=== PATIENT | male | born 1950 | race Caucasian/White ===

== ENCOUNTER 2020-06-06 15:15 | Inpatient (IN) | payer MEDICARE, BC ==
[~2020-06-06] VITALS: Ht 182.9 cm; Wt 100.8 kg
[~2020-06-06 15:15] MED LIST: DEXL60CA3 PO; PRED1TAB PO
--- NOTE | 2020-06-06 15:35 | NUR ---
Patient came in to the er c/o dizziness x 4 days, "feels like the room is spinning". On room air, breathing evenly and unlabored. Connected to the monitor and pulse ox. kept comfortable, will continue to monitor accordingly.
[2020-06-06 16:02] LABS: BASOPHILS # (AUTO) 0.1 /CMM (0.0-0.2); BASOPHILS % (AUTO) 1.1 % (0.0-2.0); EOSINOPHILS % (AUTO) 3.9 % (0.0-6.0); HEMATOCRIT 41 % (39-51); HEMOGLOBIN 13.9 g/dL (13.5-17.5); LYMPHOCYTES # (AUTO) 1.6 /CMM (0.8-4.8); LYMPHOCYTES % (AUTO) 27.9 % (20.0-44.0); MEAN CORPUSCULAR HGB CONC 34 g/dl (31.0-36.0); MEAN CORPUSCULAR VOLUME 93 fL (80-96); MONOCYTES # (AUTO) 0.6 /CMM (0.1-1.30); MONOCYTES % (AUTO) 9.9 % (2.0-12.0); NEUTROPHILS # (AUTO) 3.2 /CMM (1.8-8.9); NEUTROPHILS % (AUTO) 57.2 % (43.0-81.0); PLATELET COUNT (AUTO) 273 /CMM (150-450); RED BLOOD CELL COUNT(AUTO) 4.44 MIL/uL (4.5-6.0); WHITE BLOOD COUNT (AUTO) 5.6 K/uL (4.3-11.0)
[2020-06-06 16:12] LABS: CALCIUM, SERUM 9.3 mg/dL (8.5-10.1); CARBON DIOXIDE 30 mmol/L (21-32); CHLORIDE 103 mmol/L (98-107); CREATININE 0.8 mg/dL (0.6-1.3); GLUCOSE 99 mg/dL (74-106); POTASSIUM 4.2 mmol/L (3.5-5.1); SODIUM SERUM 140 mmol/L (136-145); UREA NITROGEN, BLOOD 14 mg/dL (7-18)
[2020-06-06] MEDS ORDERED: TRAM50TA2 PO (16:31)
[2020-06-06] MEDS ORDERED: ASPIRIN 81 MG TAB.CHEW ONE (17:28)
[2020-06-06] MEDS ORDERED: MECLIZINE HCL 25 MG TABLET ONE (17:28)
[2020-06-06] MEDS ORDERED: ASPIRIN 81 MG TAB.CHEW PO ONE (17:30)
[2020-06-06] MEDS ORDERED: MECLIZINE HCL 12.5 MG TABLET PO ONE (17:30)
[2020-06-06] MEDS ORDERED: CHOL100040 PO (17:35)
[2020-06-06] MEDS ORDERED: PANT40TA49 PO (17:35)
[2020-06-06] MEDS ORDERED: ASCO-352 PO (17:35)
[2020-06-06] MEDS ORDERED: ASPI-1420 PO (17:35)
[2020-06-06] MEDS ORDERED: HYDR200T4 PO (17:35)
[2020-06-06] MEDS ORDERED: IOHEXOL-350 100 ML VIAL IV ONE (18:28)
[2020-06-06] MEDS ORDERED: IV NS 0.9% 250 ML IV ONE (18:28)
[2020-06-06] MEDS ORDERED: MECLIZINE HCL 12.5 MG TABLET PO PRN (18:30)
--- NOTE | 2020-06-06 18:40 | NUR ---
LAB CALLED PT COVID NEGATIVE (-)
--- NOTE | 2020-06-06 18:49 | NUR ---
Wheeled patient via gurney accompanied by Barnacle for CTA
--- NOTE | 2020-06-06 18:53 | NUR ---
patient came back from CTA
--- NOTE | 2020-06-06 19:20 | NUR ---
REC'D REPORT FROM IRENE WEINER. PT RESTING COMFORTABLY IN BED. NO ACUTE DISTRESS NOTED AT THIS TIME. STILL ON MONITOR, WILL CONTINUE TO MONITOR
--- NOTE | 2020-06-06 20:27 | NUR ---
REPORT GIVEN TO IRENE REGALADO FOR HARRISON
[2020-06-06] MEDS ORDERED: ASPIRIN EC 81 MG TABLET.DR PO ONE (20:30)
--- NOTE | 2020-06-06 20:41 | NUR ---
PT TRANSFERRED PER ACLS PROTOCOL
[2020-06-06 21:00] VITALS: BP_SYST 118; BP_SYST 140; BP_SYST 145; BP_DIAS 83; BP_DIAS 88
[2020-06-06] MEDS ORDERED: ENOXAPARIN SODIUM 40 MG/0.4 ML DISP.SYRIN SQ SCH (21:00)
--- NOTE | 2020-06-06 21:00 | NUR ---
ADMISSION NOTE PT ADMITTED TO [address] BUNDY, NEW ORDERS RECIEVED WITH DX R/O STROKE. PT A/OX4 AMBULATORY WITH STEADY GAIT SWALLOW EVAL PERFORMED PT HAS NO ISSUES SWALLOWING AND ALLOWED TO EAT AND DRINK. PT CC WAS DIZZINESS FOR 4 DAYS DENIES FEELING DIZZY AT THIS TIME. GAIT IS STEADY. STROKE PROTOCOL INITIATED. PT HAS MILD RIGHT ARM WEAKNESS. AND REPORTS HE HAS SOME NUMBNESS AND TINGLING TO LEFT ARM AND HAS SOME NUMBNESS TO LEFT FOOT AND LEG. PT REPORTS THE LEFT FOOT NUMBNESS AND TINGLING HAS BEEN ONGOING SINCE HIS BACK INJUR SOME YEARS AGO. PT ORIENTED TO ROOM. CALL LIGHT PLACED IN REACH VERBALIZED /DEMONSTRATED USE OF CALL LIGHT. BED DOWN LOCKED SRX2 VERBALIZED UNDERSTANDING TO CALL FOR ASSISTANCE IF NEEDED. MRI QUESTIONAIRE COMPLETED, ADMISSION ASSESSMENT COMPLETED WILL CONT TO MONITOR.
--- NOTE | 2020-06-06 21:01 | NUR ---
ORTHOSTATIC VITALS STANDIN/83, HR 65 SITTIN/88, HR 58 LYIN/88 HR 60
[2020-06-07] VITALS: BP 104/62
[2020-06-07 04:00] VITALS: BP 104/62
[2020-06-07 07:09] LABS: BASOPHILS # (AUTO) 0.1 /CMM (0.0-0.2); BASOPHILS % (AUTO) 1.3 % (0.0-2.0); EOSINOPHILS % (AUTO) 4.7 % (0.0-6.0); HEMATOCRIT 40 % (39-51); HEMOGLOBIN 13.5 g/dL (13.5-17.5); LYMPHOCYTES # (AUTO) 1.9 /CMM (0.8-4.8); LYMPHOCYTES % (AUTO) 33.4 % (20.0-44.0); MEAN CORPUSCULAR HGB CONC 34 g/dl (31.0-36.0); MEAN CORPUSCULAR VOLUME 93 fL (80-96); MONOCYTES # (AUTO) 0.7 /CMM (0.1-1.30); MONOCYTES % (AUTO) 11.5 % (2.0-12.0); NEUTROPHILS # (AUTO) 2.9 /CMM (1.8-8.9); NEUTROPHILS % (AUTO) 49.1 % (43.0-81.0); PLATELET COUNT (AUTO) 266 /CMM (150-450); RED BLOOD CELL COUNT(AUTO) 4.26 MIL/uL (4.5-6.0); WHITE BLOOD COUNT (AUTO) 5.8 K/uL (4.3-11.0)
--- NOTE | 2020-06-07 07:20 | NUR ---
RN OPENING NOTE PATIENT RECEIVED RESTING COMFORTABLY IN BED. PATIENT IS ON ROOM AIR WITH NO COMPLAINTS OF SOB OR RESPIRATORY DISTRESS NOTED. NO COMPLAINTS OF PAIN. PATIENT SAFETY PRECAUTIONS IMPLEMENTED, BED LOCKED IN LOWEST POSITION, SIDE RAILS UP X2, CALL LIGHT WITHIN REACH. WILL CONTINUE TO MONITOR AND PROVIDE CARE THROUGHOUT SHIFT.
[2020-06-07 07:31] LABS: CALCIUM, SERUM 8.5 mg/dL (8.5-10.1); CREATININE 0.8 mg/dL (0.6-1.3); POTASSIUM 4.3 mmol/L (3.5-5.1)
[2020-06-07 07:59] LABS: THYROID STIMULATING HORMONE 2.617 uIU/mL (0.358-3.74)
[2020-06-07 08:00] VITALS: BP_SYST 113; BP_SYST 118; BP_SYST 126; BP_DIAS 76; BP_DIAS 77; BP_DIAS 82
[2020-06-07] MEDS ORDERED: ASPIRIN 81 MG TAB.CHEW PO SCH (09:00)
[2020-06-07] MEDS ORDERED: CHOLECALCIFEROL 1,000 UNIT TABLET (VIT D3) PO SCH (10:00)
[2020-06-07 12:00] VITALS: BP_SYST 114; BP_SYST 116; BP_SYST 124; BP_DIAS 72; BP_DIAS 84
--- NOTE | 2020-06-07 16:08 | NUR ---
SS Consult: SS consult requested for code stroke. The pt. is a 69-year old male seeking medical treatment for symptoms of dizziness and numbing in left hand, per pt. SW met with pt. at bedside and completed stroke depression assessment. Pt. appears well-groomed and is A&OX4. Pt.'s thought process is WNL. The pt. stated he lives alone at [[id number] [facility] [address]; [phone]]. The pt. stated he often stays with his girlfriend, Stephanie Valenzuela (did not provide number). Per patient his support system consists of his daughter, Marla Larose [phone] and son who reside sin [place]. Per pt. he is independent with all of his ADLs and is ambulating with no assist. Patient denies any drug & ETOH use. Pt. denies SI/HI and denies hallucinations. SW provided pt. with senior resources and patient accepted them. SW provided pt. with stroke empowerment education & resources and patient was agreeable. ABUSE PREVENTION: ELDER ABUSE HOTLINE (15/10) ADULT PROTECTIVE SERVICES HOTLINE [facility] Region AREA ON AGING (HOTLINE) ADULT DAY HEALTH CARE CARE CENTERS: Private pay or [facility] funded adult day care [place] Adult Day Health Care [facility] Center , [facility] , [facility] Adult Care Center , [facility] Adult [facility] Health Care , [facility] Adult [facility] Health Care , [facility] Adult [facility] Center , [place] [facility] , [facility] Adult Center , [place] ALZHEIMERS DISEASE/DEMENTIA: Alzheimers Association Helpline [facility] Chapter www.alz.org/[facility] Department of Aging www.lacity.org Family Caregiver [place] www.caregiver.org [place] Caregiver Resources Center/Family Support www.losangelesscrc.org CANCER RESOURCES: [place] Cancer Society www.cancer.org Cancer Support Community www.CancerSupportVvsb.org: CancerCare www.cancercare.org [facility] Cancer Support [place] www.[facility].org [facility] HEALTH ASSOCIATIONS: AARP www.aarp.org ALS Association (ask for Paige) www.als.org Vincentian Diabetes Association www.diabetes.org Vincentian Heart Association www.heart.org Vincentian Lung Association www.lungusa.org Vincentian Parkinson Disease Association www.apdaparkinson.org Vincentian [place] , www.redcross.org Arthritis Foundation www.arthritis.org Crohns & Colitis Foundation of Vincentian www.ccfa.org/chapters/carmen National Multiple Sclerosis Society www.nationalmssociety.org Myasthenia Gravis Foundation www.myasthenia-ca.org National Stroke Association www.stroke.org CONSERVATORSHIP & GUARDIANSHIP: AARP Steff Sykes Legal Services Center for Health Care Rights Eldercare Information and Referral Shotweld Operator [facility]: [facility] Referral Service [facility] Legal Services Office of the Public Guardian [place] GRIEF AND BEREAVEMENT RESOURCES: [facility] [place] , [facility] THE HOPE Connection , [facility] [employer] Bereavement Center , [place] HELP AT HOME CAREGIVER SUPPORT: In Home Support Services (Must have Medi-Yogi to be eligible) *Ask for a list of agencies that provide services to assist with care in the home. Local Senior Centers also have listings of care providers. HOME SAFETY MODIFICATIONS AND EQUIPMENT: Senior centers have additional referrals. [place] Medichanical Engineering and Community Investment Dept. Handyworker Program (low income) or Visit http://hcidla.st. francis hospitalUndesk.org/cxd-obafhj-es for more information National Seating and Mobility and/or ; Forever Active www.foreveractivemed.SyMynd Stay Home Safe www.Stayhomesafe.com LIFE ALERT RESPONSE SYSTEM: [place] Lifeline Services 968-327-1032 www. LifeFAMOCO.SyMynd Life Alert 801-674-3005 www.lifeNameMediart.SyMynd Life Station 881-699-0058 www.ReserveOutation.com Safe Return 937-416-0162 www.alz.or/safereturn Cell Phones for Seniors www.Gnzo MEALS AND FOOD PROGRAMS: [place] Meals on Wheels [phone] [place] Meals on Wheels [phone] [facility] [phone] [place] to the Homebound [phone] [place] to the Homebound [phone] [facility] to the Homebound [phone] [facility] to the Homebound [phone] Ji Suero [phone] [facility] [phone] [facility] [phone] [facility] [phone] [facility] [phone] Meals on Wheels [phone] For all ages: $6.85/ meal w side. Delivered M-F from 10 am-1pm. Application and payment is done over the phone. Frozen meals available for weekends. [facility] Food [facility] [phone] [facility] Content Director [phone] [facility] [phone] [facility] Outreach- Brown bag lunches [phone] [facility] [phone] MEAL/GROCERY DELIVERY PROGRAMS: [facility] Gourmet Meals [phone]- [facility] [phone]- [facility] Magic Kitchen [phone] Moms Meals [phone] (ask Graham for Discount Select grocery stores may provide delivery. MEDICAL INSURANCE SUPPORT SERVICES: Center for Health Care Rights [phone] Health Insurance Counseling/Advocacy Programs (HICAP)-Must have Medicare. Offers counseling for Medi-Yogi eligibility [phone] Department of Public Content Director [phone] www.[facility].ca.gov Medicare 539-302-8223 www.socialsecurity.org Social Security 118-660-5822 SENIOR ACTIVITY PROGRAMS: *Contact a local senior center, adult school, recreation facility or community college for education, fitness, recreation, and social programs. Aquatic Therapy and Adapted Exercise programs through [employer] [phone] [facility] at [facility] [phone] www.[facility]/encore U- Senior Friends [phone] [employer] Senior Programs [phone] www.oasisnet.org Suddenly 65 www.lnfpfykx07.com SENIOR CENTERS: [facility] [phone] [facility] [phone] [facility] [phone] [facility] [phone] [facility] [phone] [facility] [phone] [facility] [phone] [facility] [phone] Abby GenerationTone [facility] [phone] [facility] [phone] [facility] [phone] [facility] [phone] [facility] [phone] TRANSPORTATION: Local [facility] Centers may have applications for transportation programs and additional resources. ACCESS Services [phone] Transportation for seniors and disabled persons 7 days a week requiring 254 hr. advance reservation. Must apply and register for program anushka eligible. [employer] [phone] or [phone] Transportation for seniors and persons with ADA card/metro disabled card in the [facility]. M-F only. Must register for services. ONE GENERATION [phone] Serves 65 years + in conjunction with Mesh [place] program. Must be registered with both programs. A to B Transport [phone] Provides wheelchair/gurney van service. Adult Medical Transport [phone] Accepts Medi-yogi with prior authorization. Care Van [phone] Provides wheelchair Transport. [facility] Wide Transportation [phone] Provides gurney service [facility] [phone] Gurney Transport. [facility] Transportation [phone] wheelchair & gurney transport [facility] Transportation [phone] wheelchair & gurney transport [place] Non-Emergency Transport [phone] wheelchair & gurney transport [facility] Living [place] [phone] Short Term Transportation primarily for adults with disabilities on social security income. Nominal fee may apply and a reservation is required. [employer] [phone] or [phone] [place] [employer] [phone] [place] [address] Services [phone] For additional programs & services
[2020-06-07] MEDS ORDERED: PANTOPRAZOLE 40 MG TABLET.DR PO SCH (17:00)
[2020-06-07 18:00] VITALS: BP_SYST 130; BP_SYST 131; BP_SYST 132; BP_DIAS 68; BP_DIAS 72; BP_DIAS 80
--- NOTE | 2020-06-07 19:05 | NUR ---
RN CLOSING NOTE PATIENT RESTING COMFORTABLY IN BED. PATIENT IS ON ROOM AIR WITH NO COMPLAINTS OF SOB OR RESPIRATORY DISTRESS NOTED. NO COMPLAINTS OF PAIN. PATIENT SAFETY PRECAUTIONS IMPLEMENTED, BED LOCKED IN LOWEST POSITION, SIDE RAILS UP X2, CALL LIGHT WITHIN REACH. MRI COMPLETED. WILL ENDORSE CONTINUATION OF CARE THROUGHOUT SHIFT.
[2020-06-07 20:00] VITALS: BP 123/60
--- NOTE | 2020-06-07 21:10 | NUR ---
DISCHARGE NOTE IV REMOVED FROM RIGHT AC CATHETER INTACT NO S/S OF COMPLICATIONS. VS WNL. PATIENT HAS BEEN DISCHARGED HOME. REVIEWED DISCHARGE EDUCAITONS. PT HAS ALL BELONGINGS FROM ROOM. DISCHARGE DX OF VERTIGO. PT VERBALIZED UNDERSTANDING STATES HE IS GOING OT FOLLOW UP WITH DR. HORAN AND ENT DR. CANTU. PT TO BE PICKED UP BY PRIVATE VEHICLE. AND ESCORTED VIA EAMBULATION TO LOBBY TO WAIT FOR RIDE.
[2020-06-08] MEDS ORDERED: HYDROXYCHLOROQUINE 200 MG TABLET PO SCH (09:00)
[2020-06-08] MEDS ORDERED: ASPIRIN EC 81 MG TABLET.DR PO SCH (09:00)
[2020-06-08] MEDS ORDERED: ASCORBIC ACID 500 MG TABLET PO SCH (09:00)
[2020-06-08] MEDS ORDERED: predniSONE 1 MG TABLET PO SCH (09:00)
== END 2020-06-07 21:10 | disposition home or self-care (01) | DRG 149 ==
LOC: ER 15:16 → TELE 20:00
PROVIDERS: ADMIT Student in an Organized Health Care Education/Training Program; ATTEND Nurse Practitioner Acute Care
DX: H81.10 Benign paroxysmal vertigo, unspecified ear (principal); M30.0 Polyarteritis nodosa; M31.8 Other specified necrotizing vasculopathies; K21.9 Gastro-esophageal reflux disease without esophagitis; Z79.52 Long term (current) use of systemic steroids; Z20.822 Contact with and (suspected) exposure to COVID-19; R40.2362 Coma scale, best motor response, obeys commands, at arrival to emergency department; R40.2142 Coma scale, eyes open, spontaneous, at arrival to emergency department; R40.2252 Coma scale, best verbal response, oriented, at arrival to emergency department; R29.701 NIHSS score 1; Z98.890 Other specified postprocedural states; E86.0 Dehydration
CPT/HCPCS: 36415; 70450-TC; 70496-TC; 70498-TC; 70551-TC; 71045-TC; 80048-TC; 80061-TC; 84443-TC; 84484-TC; 85025-TC; 85730-TC; 87081-TC; 92526; 92611-TC; 93307-TC; 97116-TC; 97530-TC; C9803; G0378; J1650; J7050; J8597; Q9967